=== PATIENT | female | born 1975 | race Caucasian/White ===

== ENCOUNTER 2024-08-11 01:51 | Emergency (ER) | payer SELFPAY ==
[~2024-08-11] VITALS: Ht 165.1 cm; Wt 106.6 kg
[2024-08-11 02:07] VITALS: TEMP 98.6
[2024-08-11 03:11] LABS: CORONAVIRUS COVID-19 AG NEGATIVE (NEGATIVE); INFLUENZA A AG NEGATIVE (NEGATIVE); INFLUENZA B AG NEGATIVE (NEGATIVE)
[2024-08-11 04:46] VITALS: PULSE 85; RESP 18
[2024-08-11] MEDS: BENZONATATE 100 MG CAP PO ONE (04:59)
[2024-08-11] MEDS ORDERED: BENZONATATE100 MG PO (05:33)
[2024-08-11 05:47] VITALS: BP 122/88; PULSE 88; RESP 18; TEMP 98.6; O2SAT 98
== END 2024-08-11 05:38 | disposition home or self-care (01) ==
LOC: ER 02:02
DX: R05.9 Cough, unspecified (principal); J06.9 Acute upper respiratory infection, unspecified; R09.89 Other specified symptoms and signs involving the circulatory and respiratory systems; Z11.52 Encounter for screening for COVID-19; R94.31 Abnormal electrocardiogram [ECG] [EKG]
CPT/HCPCS: 71046; 93005; 99283